=== PATIENT | male | born 1965 | race Caucasian/White ===

== ENCOUNTER → 2016-12-21 | Outpatient (REF) | payer BC | LOC: M LAB REF 15:31 | PROVIDERS: ATTEND Physician Assistant Medical | DX: R10.9 Unspecified abdominal pain (principal) ==

== ENCOUNTER 2017-06-03 12:17 | Emergency (ER) | payer OTHER, BC ==
[~2017-06-03] VITALS: Ht 180.3 cm; Wt 75.6 kg
[2017-06-03] MEDS ORDERED: FLUORESCEIN OPHTH 1 MG STRIP OS ONE (13:45)
[2017-06-03] MEDS ORDERED: TETRAHYDROZOLINE OPHTH 0.05% 15 ML BTL OD PRN (13:45)
[2017-06-03] MEDS ORDERED: TETRACAINE 0.5% OPHTH SOLN 4ML OD ONE (14:00)
[2017-06-03 14:11] LABS: METHADONE URINE NEGATIVE (NEGATIVE)
[2017-06-03 14:15] LABS: BASO % 0.3 % (0.0-1.0); EOS % 0.3 % (0.0-3.0); IMMATURE GRANULOCYTE % 0.3 % (0-0); LYMPH # 1.5 10^3/uL (1.5-4.5); LYMPH % 19.2 % (24.0-44.0); MEAN CORPUSCULAR HGB CONC 35.9 g/dl (32.0-36.5); MEAN CORPUSCULAR VOLUME 89.1 fl (80.0-96.0); MONO # 0.4 10^3/uL (0.0-0.8); MONO % 5.4 % (0.0-5.0); NEUTROPHILS # 5.6 10^3/uL (1.8-7.7); NEUTROPHILS % 74.5 % (36.0-66.0); PLATELET COUNT, AUTOMATED 282 10^3/uL (150-450); RED CELL DISTRIBUTION WIDTH 11.6 % (11.5-14.5); WHITE BLOOD COUNT 7.6 10^3/uL (4.0-10.0)
[2017-06-03 14:55] LABS: ALBUMIN 4.1 GM/DL (3.2-5.2); ALBUMIN/GLOBULIN RATIO 1.37 (1.00-1.93); ALKALINE PHOSPHATASE 41 U/L (45-117); ALT/SGPT 31 U/L (12-78); ANION GAP 7 MEQ/L (8-16); AST/SGOT 14 U/L (7-37); BILIRUBIN,DIRECT 0.1 MG/DL (0.0-0.2); BILIRUBIN,TOTAL 0.6 MG/DL (0.2-1.0); BLOOD UREA NITROGEN 25 MG/DL (7-18); CALCIUM LEVEL 8.5 MG/DL (8.5-10.1); CARBON DIOXIDE LEVEL 29 MEQ/L (21-32); CHLORIDE LEVEL 104 MEQ/L (98-107); CREATININE FOR GFR 0.76 MG/DL (0.70-1.30); GLOMERULAR FILTRATION RATE > 60.0 (>56); GLUCOSE, FASTING 93 MG/DL (70-105); POTASSIUM SERUM 3.7 MEQ/L (3.5-5.1); SODIUM LEVEL 140 MEQ/L (136-145); T UPTAKE 34 % (33-40); THYROXINE (T4) 8.5 UG/DL (4.5-12.0); TOTAL PROTEIN 7.1 GM/DL (6.4-8.2)
[2017-06-03] MEDS ORDERED: ISOVUE-370 76% 100ML VIAL (Q9967) As Ordered ONE (15:11)
[2017-06-03] MEDS ORDERED: MORPHINE 4 MG/ML 1ML SYRINGE IV ONE (15:30)
[2017-06-03] MEDS ORDERED: NS 1,000 ML IV ONE (17:45)
[2017-06-03] MEDS ORDERED: POLY2.5S OD (18:11)
[2017-06-03 18:41] VITALS: BP 122/70
--- NOTE | 2017-06-04 07:55 | REP ---
CT ABDOMEN AND PELVIS WITH CONTRAST: HISTORY: Pancreatitis. The liver, gallbladder, spleen, adrenal glands and kidneys are normal in appearance. The body and tail of the pancreas appear normal. The pancreatic head is not well seen. There appears to be minimal dilatation of the pancreatic duct measuring 4 mm in the region of the head of the pancreas. There is no mass, adenopathy or free fluid. The visualized lungs are clear. The prostate gland and urinary bladder are normal in appearance. Minimal degenerative change is present in the spine. There is an old compression fracture of the L2 vertebral body with minimal height loss. IMPRESSION: There appears to be minimal dilatation of the pancreatic duct measuring 4 mm in the region of the head of the pancreas. This can be seen in patient's with pancreatitis. Signed by Pérez Quiroga MD 06/04/2017 09:10 A
--- NOTE | 2017-06-04 17:55 | ECGEPIP ---
Stationary ECG Study [facility] - ED Test Date: 2017-06-03 Pat Name: ELISE WARNER Department: Room: - Gender: M [employer]: ct : 1965 Requested By: SARAN White PA-C Order Number: [id number] Reading MD: Paul Phillips Measurements Intervals [place] Rate: 66 P: 40 MN: 154 QRS: 65 QRSD: 89 T: 50 QT: 389 QTc: 409 Interpretive Statements SINUS RHYTHM POSSIBLE LEFT ATRIAL ENLARGEMENT POOR R WAVE PROGRESSION SIMILAR TO 02/18/13 Electronically Signed On 06-04-2017 17:54:52 EST by Paul Phillips
[2017-06-07 00:06] LABS: Lyme Disease IgG/IgM Antibodie <0.91 ISR (0.00-0.90); Lyme Disease IgM Ab Quantitati <0.80 index (0.00-0.79)
== END 2017-06-03 18:44 | disposition home or self-care (01) ==
LOC: M ED 12:17
DX: T15.01XA Foreign body in cornea, right eye, initial encounter (principal); X58.XXXA Exposure to other specified factors, initial encounter; Y92.89 Other specified places as the place of occurrence of the external cause; Y93.89 Activity, other specified; Y99.8 Other external cause status; K85.90 Acute pancreatitis without necrosis or infection, unspecified
CPT/HCPCS: 74177; 80048; 80076; 80307; 81001; 83690; 84436; 84443; 84479; 85025; 86617; 87086; 93005; 96374; 99284; Q9967

== ENCOUNTER → 2022-12-01 | Outpatient (REF) | payer OTHER, BC ==
[~2022-12-01] MED LIST: POLY2.5S OD
== END ==
LOC: M SFHCDERM 12:37
PROVIDERS: ATTEND Dermatology
DX: D10.0 Benign neoplasm of lip (principal)